=== PATIENT | male | born 1940 | race Caucasian/White ===

== ENCOUNTER 2023-12-19 22:15 | Inpatient (IN) | payer OTHER, SELFPAY ==
[2023-12-19 22:45] VITALS: BP 132/98; PULSE 116; RESP 19; TEMP 36.1; O2SAT 96
[2023-12-19 22:46] VITALS: BMI 23.8
[2023-12-20 00:07] LABS: Glucose, Whole Blood 112 mg/dL (60-115)
[2023-12-20] MEDS: Amiodarone HCL 200 MG TABLET 100 MG PO ×2 (00:35→21:04)
[2023-12-20] MEDS: Atorvastatin Calcium 40 MG TABLET PO ×2 (00:36→21:03)
[2023-12-20] MEDS: Apixaban 5 MG TABLET PO ×3 (00:36→21:03)
[2023-12-20 00:37] VITALS: BP 132/98; PULSE 116
[2023-12-20] MEDS: Metoprolol Succinate ER 50 MG TAB.ER.24H PO ×2 (00:37→21:05)
[2023-12-20] MEDS: Memantine HCl 10 MG TABLET PO ×3 (00:37→21:03)
[2023-12-20 00:38] VITALS: BP 132/98
[2023-12-20] MEDS: Sacubitril/Valsartan 24/26 1 TAB TABLET PO (00:38)
--- NOTE | 2023-12-20 01:20 | PC.NURSE ---
Admission Note Oliver Basurto, 83 years old man was presented to [facility] for increased agitation, aggressive, and threatening behavior towards his . Patient was diagnosed with Vascular Dementia 2 years ago. He has medical history of Afib, Coronary artery disease(CAD), cardiomegaly, heart failure, history of [place], hyperlipidemia, hypertension, obstructive sleep apnea, PTSD, depression, and others.? Oliver arrived on S1 unit at 2240 on 12/19/23, on Section-12B, with an admitting diagnosis of Vascular Dementia (F1.50). Patient is alert and oriented x 3 with little insight into his situation. Patient is calm, pleasant, and compliant with the admission process. Denied SI/HI/AVH/depression/anxiety, contracted for the safety, ambulates with walker, high fall risk due to recent fall at home, VSS, no visible skin issues noticed, meds rec completed based on ED list and verified by calling his who is sole incharge of is medication/provider notified/med approved/MAR active/patient takes his medication whole with water. Patient wears glasses, hearing is impaired, and wears upper and lower dentures. Tested positive for covid? and for UTI on 12/10/23 in ED, UTI treated with Cephalexin, Signed release paper, unit orientation completed,? patient is being observed on 5 minutes safety check as ordered. Patient is full code. Belongings inventoried/secured. Notice of Rights for Temporary Involuntary Hospitalization Form offered/explained/signed/filed.?
[2023-12-20] MEDS: Empagliflozin 10 MG TABLET PO ×2 (08:15→08:19)
[2023-12-20] MEDS: Sennosides 8.6 MG TABLET 17.2 MG PO (08:15)
[2023-12-20 08:17] VITALS: BP 93/62; PULSE 71; RESP 16; TEMP 36.6; O2SAT 96
[2023-12-20] MEDS: buPROPion HCl XL 300 MG TAB.ER.24H PO (08:19)
[2023-12-20] MEDS: Furosemide 20 MG TABLET 10 MG PO (08:19)
--- NOTE | 2023-12-20 08:46 | P.HPPS_ITS ---
[facility] Date of Service: 12/20/23 Chief Complaint: Vascular Dementia Sources of Information: patient interviewed, chart reviewed and crisis/core team assessment reviewed Additional Sources of Information: Joselyn [phone] HPI Subjective Notes: Daigle Warning and Section 12B Narrative: Mr. Hoskins is a 83 year-old male with hx of vascular dementia who was initially brought via EMS to [facility] ED on 12/10/2023 due to increase combative behaviors towards (per ED documentation threw glass with ice and broke other) due to beliefs that is having an affair with garage door service technician. Per , pt had made threats that he wanted to kill her. In the ED, pt presented as calmer but continued to present with ideas of his having an affair. He was not oriented to year. Labs in the ED included CBC which showed mild leukocytosis (WBC 11.3), CMP without electrolyte abnormalities, BUN elevated 26, Cr 1.14, ASL 21, ALT 15. UA showed urine protein, glucose, trace of ketones, yeast. He was started on cephalexin for uti. He was also found to be covid positive but described as asymptomatic, therefore not started on paxlovid. His chest XR did show mild patchy perihilar infiltrates bilat. Utox was negative. On the unit, pt presents as guarded. He continues to report that the only reason he was sent to this hospital is because the garage door service technician old the doctor at the other hospital to keep him away from his . He also reports that he suspect long time friend, Franc, has been murdering people and he learned through a secrete source that he is planning to kill his ramesh. Pt presents somewhat restless and agitated about idea that he has to warn his friend who he suspect will be killed tonkary. When asked if hearing things that others can't hear, he denies it. He denies any physical pain. Past Psychiatric History: Inpt: none in the past OP: Dr. Clovis Blood [phone], ext [phone]. Past trials: wellbutrin Medical Evaluation Reviewed: Yes [facility] Medical History (Updated 12/21/23 @ 08:37 by Stefanie Aviles NP) PTSD (post-traumatic stress disorder) MOE (obstructive sleep apnea) CHF (congestive heart failure) Myocardial infarction Cardiomegaly HLD (hyperlipidemia) CAD (coronary artery disease) A-fib Vascular dementia Surgical History (Updated 12/20/23 @ 09:58 by Christin Carballo PA-C) History of bilateral hip replacements History of cholecystectomy Diagnostics Vital Signs (24Hr): Vital Signs - 24 hr 12/19/23 22:45 12/20/23 00:37 12/20/23 00:38 Temperature 96.9 F Pulse Rate 116 H 116 H Respiratory Rate 19 Blood Pressure 132/98 H 132/98 H 132/98 H Pulse Oximetry 96 Oxygen Delivery Method Room Air 12/20/23 08:17 Temperature 97.9 F Pulse Rate 71 Respiratory Rate 16 Blood Pressure 93/62 Pulse Oximetry 96 Oxygen Delivery Method Room Air BMI result Body Mass Index 23.8 Labs Labs: Laboratory Results - last 48 hr 12/19/23 23:13 POC Glucose 112 Meds/Allergies Meds Home Medications ?Medication ?Instructions ?Recorded ?Confirmed ?Type amiodarone 100 mg tablet 100 mg PO BEDTIME 12/19/23 12/19/23 History apixaban 5 mg tablet 5 mg PO BID 12/19/23 12/19/23 History atorvastatin 40 mg tablet 40 mg PO BEDTIME 12/19/23 12/19/23 History bupropion HCl 300 mg 24 hr tablet, 300 mg PO QAM 12/19/23 12/19/23 History extended release docusate sodium 100 mg capsule 100 mg PO DAILY PRN Constipation 12/19/23 12/19/23 History empagliflozin 10 mg tablet 10 mg PO QAM 12/19/23 12/19/23 History (Jardiance) furosemide 20 mg tablet 10 mg PO DAILY 12/19/23 12/19/23 History memantine 10 mg tablet 10 mg PO BID 12/19/23 12/19/23 History metoprolol succinate 25 mg 50 mg PO BEDTIME 12/19/23 12/19/23 History tablet,extended release 24 hr oxycodone 5 mg tablet 5 mg PO Q4H PRN Pain (Scale Score 12/19/23 12/19/23 History 4-6) pantoprazole 20 mg tablet,delayed 20 mg PO DAILY 12/19/23 12/19/23 History release sacubitril 24 mg-valsartan 26 mg 1 tab PO BID 12/19/23 12/19/23 History tablet sennosides 8.6 mg tablet (senna) 17.2 mg PO DAILY PRN Constipation 12/19/23 12/19/23 History trazodone 50 mg tablet 50 mg PO BEDTIME PRN Insomnia 12/19/23 12/19/23 History Allergies Allergies Allergy/AdvReac Type Severity Reaction Status Date / Time No Known Allergies Allergy Verified 12/19/23 22:30 Mental Status Exam Mental Status Exam Narrative: Appearance: wearing hospital gown, fair hygiene, in NAD Behavior: somewhat guarded Psychomotor: no agitation or retardation noted Speech: mostly clear, regular rhythm/volume, spontaneous TP: linear TC: paranoid delusions Mood: good Affect: paranoid, guarded SI: denies HI: none VH/AH: none Delusions: paranoid delusions, delusions of spouse having an affair. Insight/judgment: impaired x 2. memory/cog: alert, oriented to fact that this is a hospital, but does not know t he city, knows month, not year. Not oriented to situation. Assessment & Plan Assessment & Plan (1) Major neurocognitive disorder due to vascular disease, with behavioral disturbance, moderate: Status: Acute Code(s): F01.B18 - Vascular dementia, moderate, with other behavioral disturbance Plan Mr. Hoskins is a 83 year-old male with hx of vascular dementia who has been presenting with delusions of spouse having an affair since 01/2023. Per , he has been presenting more agitated, also with paranoid delusions of long time friend killing people. He is not oriented to city, nor year. His insight and judgment are impaired. Discussed with invoking HCP. Plan to d/c wellbutrin and start risperidone to target delusions. PLAN 1. Admit to S1, sect 12b, 15 minutes checks 2. d/c wellbutrin, start risperidone 0.5mg po BID. 3. aftercare planning. Patient educated on: diagnosis and medication risk/benefits Guardian/Caregiver educated on: diagnosis and medication risk/benefits Informed Consent: understands Reason for continued inpatient stay Substantial Risk for: harm to others and inability to function Statement Statement: I have reviewed the history and physical and performed a pertinent examination on my patient. No changes have occurred unless specified. If the History and Physical was not performed prior to admission, the Hospitalist's service will be consulted for completing the admission physic al. Time Spent With Patient Time: Total time managing care of this patient today _35___ minutes.
--- NOTE | 2023-12-20 09:47 | HO.PM.IMCN ---
History of Present Illness Data of Consult Service Date: 12/20/23 Requesting physician: Conner Tobias Primary Care Provider: Nonstaff Physician HPI Reason for consult: medical consult 83-year-old male admitted to [facility] with a past medical history significant for vascular dementia diagnosed in 2021, AFib, hypertension, CAD, HLD, cardiomegaly, CHF, MOE (no CPAP), PTSD, depression, AICD, and history of [place] in 1992. He was sent to us from [facility] for agitation and aggressive behavior toward his on a section 12 B. he was diagnosed with COVID and a UTI in 12 10 23, treated with cephalexin. He has no urinary concerns including frequency, urgency, hesitancy or dysuria. He denies any medical concerns today including headache sore throat congestion shortness of breath cough abdominal pain nausea vomiting diarrhea or musculoskeletal complaints. Review of Systems Constitutional: Constitutional: Denies body ache(s), Denies chills, Denies fatigue, Denies fever(s) and Denies headache(s) Eyes: Eyes: Denies change in vision ENT: Denies headache(s), Denies nasal congestion and Denies nasal discharge Cardiovascular: Cardiovascular: Denies rapid heart rate, Denies lightheadedness and Denies dyspnea Respiratory: Respiratory: Denies cough and Denies dyspnea Gastrointestinal: Gastrointestinal: Denies constipation, Denies diarrhea, Denies nausea and Denies vomiting Genitourinary: Genitourinary: Denies dysuria, Denies urinary frequency, Denies urinary hesitancy and Denies urinary urgency Musculoskeletal: Musculoskeletal: Denies back pain Integumentary/Breasts: Skin/Breast: Denies rash Neurologic: Denies headache(s) and Reports memory loss Psychiatric: Psychiatric: Denies anxiety and Reports memory loss Endocrine: Endocrine: Denies fatigue [facility] Medical History (Updated 12/20/23 @ 09:58 by Christin Carballo PA-C) PTSD (post-traumatic stress disorder) MOE (obstructive sleep apnea) CHF (congestive heart failure) Myocardial infarction Cardiomegaly HLD (hyperlipidemia) CAD (coronary artery disease) A-fib Vascular dementia Functional capacity: uses cane/walker Surgical History (Updated 12/20/23 @ 09:58 by Christin Carballo PA-C) History of bilateral hip replacements History of cholecystectomy Social History Household Members: Spouse Household Members Other:: 2 Housing: Condominium Do you presently have visiting nurse or other home services: No Patient Tobacco Use Status: Former Tobacco user Tobacco use type: Cigarette Smoked in Last 30 Days: No Use of substances other than those prescribed or required for medical reasons: No Have you been hit, kicked, punched, or otherwise hurt by someone within the past year? If so, by whom?: No Do you feel safe in your current relationship?: Yes Is there a partner from a previous relationship who is making you feel unsafe now?: No Are you made to feel afraid or neglected: No Advance Directives: No Advance Directives Information Provided: No Do you have a plan to hurt others: No Plan Recently lost weight without trying: Yes How much weight loss: 14-23 pounds Eating poorly because of decreased appetite: No Nutrition screen score: 4 Nutrition Risks: No Nutritional Risk Poor oral hygiene: Yes Narrative: Previous smoker, no alcohol, no illicit drug use. Lives with . Meds Allergies Allergy/AdvReac Type Severity Reaction Status Date / Time No Known Allergies Allergy Verified 12/19/23 22:30 Active Medications: Current Medications Acetaminophen (Acetaminophen 325 Mg Tablet) 650 mg PO Q6H PRN PRN Reason: Headache/Pain Mild Scale (1-3) Al Hydroxide/Mg Hydroxide (Magnesium Hydrox/Alum Hydrox 30 Ml Oral.Susp) 30 ml PO Q6H PRN PRN Reason: Heartburn/Nausea Amiodarone HCl (Amiodarone Hcl 200 Mg Tablet) 100 mg PO BEDTIME [facility] Last Admin: 12/20/23 00:35 Dose: 100 mg Apixaban (Apixaban 5 Mg Tablet) 5 mg PO BID [facility] Last Admin: 12/20/23 08:18 Dose: 5 mg Atorvastatin Calcium (Atorvastatin Calcium 40 Mg Tablet) 40 mg PO BEDTIME [facility] Last Admin: 12/20/23 00:36 Dose: 40 mg Bupropion HCl (Bupropion Hcl Xl 300 Mg Tab.Er.24h) 300 mg PO DAILY [facility] Last Admin: 12/20/23 08:19 Dose: 300 mg Docusate Sodium (Docusate Sodium 100 Mg Capsule) 100 mg PO DAILY PRN PRN Reason: Constipation Empagliflozin (Empagliflozin 10 Mg Tablet) 10 mg PO DAILY [facility] Last Admin: 12/20/23 08:19 Dose: 10 mg Furosemide (Furosemide 20 Mg Tablet) 10 mg PO DAILY [facility]; Protocol Last Admin: 12/20/23 08:19 Dose: 10 mg Hydroxyzine HCl (Hydroxyzine Hcl 25 Mg Tablet) 25 mg PO Q6H PRN PRN Reason: Anxiety Magnesium Hydroxide (Milk Of Magnesia 30 Ml Oral.Susp) 30 ml PO DAILY PRN PRN Reason: Constipation Memantine (Memantine Hcl 10 Mg Tablet) 10 mg PO BID [facility] Last Admin: 12/20/23 08:18 Dose: 10 mg Metoprolol Succinate (Metoprolol Succinate Er 50 Mg Tab.Er.24h) 50 mg PO BEDTIME [facility]; Protocol Last Admin: 12/20/23 00:37 Dose: 50 mg Oxycodone HCl (Oxycodone Hcl Immed Release 5 Mg Tablet) 5 mg PO Q4H PRN PRN Reason: Pain (Scale Score 4-6) Pantoprazole Sodium (Pantoprazole Sodium 20 Mg Tablet.Dr) 20 mg PO DAILY [facility] Sacubitril/Valsartan (Sacubitril/Valsartan 1 Tab Tablet) 1 tab PO BID [facility]; Protocol Last Admin: 12/20/23 00:38 Dose: 1 tab Senna (Sennosides 8.6 Mg Tablet) 17.2 mg PO DAILY PRN PRN Reason: Constipation Last Admin: 12/20/23 08:15 Dose: 17.2 mg Trazodone HCl (Trazodone Hcl 50 Mg Tablet) 50 mg PO BEDTIME MRX1 PRN PRN Reason: Insomnia Home Medications ?Medication ?Instructions ?Recorded ?Confirmed ?Last Taken ?Type amiodarone 100 mg tablet 100 mg PO BEDTIME 12/19/23 12/19/23 Unknown History apixaban 5 mg tablet 5 mg PO BID 12/19/23 12/19/23 Unknown History atorvastatin 40 mg tablet 40 mg PO BEDTIME 12/19/23 12/19/23 Unknown History bupropion HCl 300 mg 24 hr tablet, 300 mg PO QAM 12/19/23 12/19/23 Unknown History extended release docusate sodium 100 mg capsule 100 mg PO DAILY PRN Constipation 12/19/23 12/19/23 Unknown History empagliflozin 10 mg tablet 10 mg PO QAM 12/19/23 12/19/23 Unknown History (Jardiance) furosemide 20 mg tablet 10 mg PO DAILY 12/19/23 12/19/23 Unknown History memantine 10 mg tablet 10 mg PO BID 12/19/23 12/19/23 Unknown History metoprolol succinate 25 mg 50 mg PO BEDTIME 12/19/23 12/19/23 Unknown History tablet,extended release 24 hr oxycodone 5 mg tablet 5 mg PO Q4H PRN Pain (Scale Score 12/19/23 12/19/23 Unknown History 4-6) pantoprazole 20 mg tablet,delayed 20 mg PO DAILY 12/19/23 12/19/23 Unknown History release sacubitril 24 mg-valsartan 26 mg 1 tab PO BID 12/19/23 12/19/23 Unknown History tablet sennosides 8.6 mg tablet (senna) 17.2 mg PO DAILY PRN Constipation 12/19/23 12/19/23 Unknown History trazodone 50 mg tablet 50 mg PO BEDTIME PRN Insomnia 12/19/23 12/19/23 Unknown History Physical Exam Vital Signs and Narrative: Vital Signs: Last Vital Signs Temp 97.9 F 12/20/23 08:17 Pulse 71 12/20/23 08:17 Resp 16 12/20/23 08:17 BP 93/62 12/20/23 08:17 Pulse Ox 96 12/20/23 08:17 O2 Del Method Room Air 12/20/23 08:17 BMI result Body Mass Index 23.8 General: AOx3, no acute distress Resp: CTA bilaterally CVS: S1, S2, RRR GI: +BS, NT, no distention Skin: Warm, dry Neuro: Cranial nerves II-XII grossly intact bilaterally. Motor grossly intact bilaterally Extremities: No edema Psych: Appropriate affect Results Labs Labs: Laboratory Results - last 24 hr 12/19/23 23:13 POC Glucose 112 Assessment and Plan (1) Medical clearance for psychiatric admission: Status: Acute Plan 83-year-old male admitted to [facility] with a past medical history significant for vascular dementia diagnosed in 2021, AFib, hypertension, CAD, HLD, cardiomegaly, CHF, MOE (no CPAP), PTSD, depression, AICD, and history of [place] in 1992. He was sent to us from [facility] for agitation and aggressive behavior toward his on a section 12 B. Patient appears medically clear for psych floor. Recent UTI - treated with Keflex, patient asymptomatic - check UA Vascular dementia - continue memantine CHF - continue Entresto A fib - continue apixiban and amiodarone HTN - continue furosemide and metoprolol CAD/HLD - continue atorvastatin Thank you for allowing me to participate in the pt's care. Signing off for now. Please contact the medical team if any questions or concerns.
[2023-12-20 10:34] VITALS: BP 90/56
[2023-12-20] MEDS: risperiDONE 0.5 MG TABLET PO ×2 (14:04→21:03)
[2023-12-20 20:00] VITALS: BP 97/58; PULSE 71; RESP 16; TEMP 36.2; O2SAT 96
[2023-12-20 21:05] VITALS: BP 97/58; PULSE 71
[2023-12-20] MEDS: traZODone HCL 50 MG TABLET PO (21:08)
[2023-12-21 08:00] VITALS: BP 109/56; PULSE 72; RESP 18; TEMP 36; O2SAT 98
[2023-12-21] MEDS: Empagliflozin 10 MG TABLET PO (08:29)
[2023-12-21] MEDS: Pantoprazole Sodium 20 MG TABLET.DR PO (08:29)
[2023-12-21] MEDS: risperiDONE 0.5 MG TABLET PO ×2 (08:29→21:09)
[2023-12-21] MEDS: Memantine HCl 10 MG TABLET PO ×2 (08:29→21:10)
[2023-12-21] MEDS: Apixaban 5 MG TABLET PO ×2 (08:29→21:09)
--- NOTE | 2023-12-21 11:39 | HO.PSYCHPN ---
Subjective Subjective Date of Service: 12/21/23 Reason For Visit: Vascular Dementia Subjective Notes: Conditional Voluntary Healthcare Proxy: Yes Interim History: Pt sleep most of the night. He presents as calm and asks appropriate questions about why he is a patient here in the hospital. This script writer explained that it was aggression towards and safety in the home. Pt denies any plan or intent to harm her. We discussed that disagrees with idea that she is having an affair. Pt states that even if he thinks she is having affair she would not hurt her. When asked about paranoia related to thinking that someone was trying to kill her friend, he reports he does not know how he got clue about it. He has been visible on the unit, social with peers. SBP has been low- 109/56, will check ortho HOTN Medication Compliance: Yes Side effects from medications: No Attending Groups: Yes Diagnostics Vital Signs (24Hr): Vital Signs - 24 hr 12/20/23 20:00 12/20/23 21:05 12/21/23 08:00 Temperature 97.2 F 96.8 F Pulse Rate 71 71 72 Respiratory Rate 16 18 Blood Pressure 97/58 L 97/58 L 109/56 L Pulse Oximetry 96 98 Oxygen Delivery Method Room Air Room Air BMI result Body Mass Index 23.8 Labs Labs: Laboratory Results - last 48 hr 12/19/23 23:13 POC Glucose 112 Medications Medications Current Medications Acetaminophen (Acetaminophen 325 Mg Tablet) 650 mg PO Q6H PRN PRN Reason: Headache/Pain Mild Scale (1-3) Al Hydroxide/Mg Hydroxide (Magnesium Hydrox/Alum Hydrox 30 Ml Oral.Susp) 30 ml PO Q6H PRN PRN Reason: Heartburn/Nausea Amiodarone HCl (Amiodarone Hcl 200 Mg Tablet) 100 mg PO BEDTIME [facility] Last Admin: 12/20/23 21:04 Dose: 100 mg Apixaban (Apixaban 5 Mg Tablet) 5 mg PO BID [facility] Last Admin: 12/21/23 08:29 Dose: 5 mg Atorvastatin Calcium (Atorvastatin Calcium 40 Mg Tablet) 40 mg PO BEDTIME [facility] Last Admin: 12/20/23 21:03 Dose: 40 mg Docusate Sodium (Docusate Sodium 100 Mg Capsule) 100 mg PO DAILY PRN PRN Reason: Constipation Empagliflozin (Empagliflozin 10 Mg Tablet) 10 mg PO DAILY [facility] Last Admin: 12/21/23 08:29 Dose: 10 mg Furosemide (Furosemide 20 Mg Tablet) 10 mg PO DAILY [facility]; Protocol Last Admin: 12/20/23 08:19 Dose: 10 mg Hydroxyzine HCl (Hydroxyzine Hcl 25 Mg Tablet) 25 mg PO Q6H PRN PRN Reason: Anxiety Magnesium Hydroxide (Milk Of Magnesia 30 Ml Oral.Susp) 30 ml PO DAILY PRN PRN Reason: Constipation Memantine (Memantine Hcl 10 Mg Tablet) 10 mg PO BID [facility] Last Admin: 12/21/23 08:29 Dose: 10 mg Metoprolol Succinate (Metoprolol Succinate Er 50 Mg Tab.Er.24h) 50 mg PO BEDTIME [facility]; Protocol Last Admin: 12/20/23 21:05 Dose: 50 mg Oxycodone HCl (Oxycodone Hcl Immed Release 5 Mg Tablet) 5 mg PO Q4H PRN PRN Reason: Pain (Scale Score 4-6) Pantoprazole Sodium (Pantoprazole Sodium 20 Mg Tablet.Dr) 20 mg PO DAILY [facility] Last Admin: 12/21/23 08:29 Dose: 20 mg Risperidone (Risperidone 0.5 Mg Tablet) 0.5 mg PO BID [facility] Last Admin: 12/21/23 08:29 Dose: 0.5 mg Sacubitril/Valsartan (Sacubitril/Valsartan 1 Tab Tablet) 1 tab PO BID [facility]; Protocol Last Admin: 12/20/23 11:23 Dose: Not Given Senna (Sennosides 8.6 Mg Tablet) 17.2 mg PO DAILY PRN PRN Reason: Constipation Last Admin: 12/20/23 08:15 Dose: 17.2 mg Trazodone HCl (Trazodone Hcl 50 Mg Tablet) 50 mg PO BEDTIME MRX1 PRN PRN Reason: Insomnia Last Admin: 12/20/23 21:08 Dose: 50 mg Allergies Allergies Allergy/AdvReac Type Severity Reaction Status Date / Time No Known Allergies Allergy Verified 12/19/23 22:30 Assessment & Plan Assessment & Plan (1) Major neurocognitive disorder due to vascular disease, with behavioral disturbance, moderate: Status: Acute Code(s): F01.B18 - Vascular dementia, moderate, with other behavioral disturbance Plan Mr. Hoskins is a 83 year-old male with hx of vascular dementia who has been presenting with delusions of spouse having an affair since 01/2023. Per , he has been presenting more agitated, also with paranoid delusions of long time friend killing people. He is not oriented to city, nor year. His insight and judgment are impaired. Discussed with invoking HCP. Plan to d/c wellbutrin and start risperidone to target delusions. PLAN 12/20 continue current medications. HOTN. will check ortho. Reason for continued inpatient stay Substantial Risk for: harm to others and inability to function Time Spent With Patient Time: Total time managing care of this patient today ____ minutes.
[2023-12-21 14:11] VITALS: BP 122/57; PULSE 89
[2023-12-21 14:51] VITALS: BP 122/57; PULSE 89; O2SAT 94
[2023-12-21 14:53] VITALS: BP 119/74; PULSE 77; O2SAT 96
--- NOTE | 2023-12-21 15:14 | PC.NURSE ---
Clean catch urine obtained at 1500. Patient voided 500cc clear yellow urine. Specimen sent to lab.
[2023-12-21 15:24] LABS: Appearance Urine Clear; Color Urine Yellow; Glucose Urine UA >=1000 mg/dL (Negative); Leukocyte Esterase Urine Negative (Negative); Nitrite Urine Negative (Negative); PH 5.5 (5.0-9.0); Specific Gravity - Urine 1.015 (1.005-1.025); UMIC TRIGGER UACC YES; Urine Blood Trace (Negative); Urine Ketones Negative (Negative); Urine Protein Negative (Neg-Trace)
[2023-12-21 15:27] LABS: Bacteria Urine None Seen (None Seen); Hyaline Casts Urine 0-2 /LPF (0-2); RBC Urine 0-2 /HPF (0-2); Squamous Epithelial Cell Urine 0-2 /HPF (0-2); WBC Urine 0-5 /HPF (0-5)
--- NOTE | 2023-12-21 18:35 | PC.NURSE ---
Urine with greater than 1000 glucose spillage. Patient is on Jardiance, a glucose spilling medication.
[2023-12-21 20:00] VITALS: BP 115/55; BP 115/75; PULSE 57; RESP 16; TEMP 36.3; O2SAT 94
[2023-12-21] MEDS: Atorvastatin Calcium 40 MG TABLET PO (21:08)
[2023-12-21] MEDS: hydrOXYzine HCL 25 MG TABLET PO (21:09)
[2023-12-21] MEDS: traZODone HCL 50 MG TABLET PO (21:09)
[2023-12-21] MEDS: Amiodarone HCL 200 MG TABLET 100 MG PO (21:09)
[2023-12-22 08:15] VITALS: BP 132/60; PULSE 65; RESP 16; TEMP 36.5; O2SAT 96
[2023-12-22] MEDS: risperiDONE 0.5 MG TABLET PO ×2 (08:32→20:29)
[2023-12-22] MEDS: Pantoprazole Sodium 20 MG TABLET.DR PO (08:32)
[2023-12-22] MEDS: Apixaban 5 MG TABLET PO ×2 (08:32→20:29)
[2023-12-22] MEDS: Memantine HCl 10 MG TABLET PO ×2 (08:32→20:29)
[2023-12-22] MEDS: Empagliflozin 10 MG TABLET PO (08:33)
[2023-12-22 11:29] VITALS: BMI 26.3
--- NOTE | 2023-12-22 17:56 | HO.PSYCHPN ---
Subjective Subjective Date of Service: 12/22/23 Reason For Visit: Vascular Dementia Subjective Notes: Conditional Voluntary Healthcare Proxy: Yes Interim History: Pt sleep most of the night. Pt has been visible on the unit, social with select peers. He continues to repor he would never hurt his . He denies SI/HI. Still believes having affair, less insistence in friend trying to kill someone. He has been eating, some mild poor boundaries with females. Review of Systems Review of Systems No chest pain, no SOB No changes in vision No loose stools or constipation. Constitutional: Denies body ache(s), Denies chills, Denies fatigue, Denies fever(s) and Denies headache(s) Eyes: Denies change in vision Denies headache(s), Denies nasal congestion and Denies nasal discharge Cardiovascular: Denies rapid heart rate, Denies lightheadedness and Denies dyspnea Respiratory: Denies cough and Denies dyspnea Gastrointestinal: Denies constipation, Denies diarrhea, Denies nausea and Denies vomiting Genitourinary: Denies dysuria, Denies urinary frequency, Denies urinary hesitancy and Denies urinary urgency Musculoskeletal: Denies back pain Skin/Breast: Denies rash Denies headache(s) and Reports memory loss Psychiatric: Denies anxiety and Reports memory loss Endocrine: Denies fatigue Mental Status Exam Mental Status Exam Narrative: Appearance: wearing hospital gown, fair hygiene, in NAD Behavior: somewhat guarded Psychomotor: no agitation or retardation noted Speech: mostly clear, regular rhythm/volume, spontaneous TP: linear TC: paranoid delusions Mood: good Affect: paranoid, guarded SI: denies HI: none VH/AH: none Delusions: paranoid delusions, delusions of spouse having an affair. Insight/judgment: impaired x 2. memory/cog: alert, oriented to fact that this is a hospital, but does not know the city, knows month, not year. Not oriented to situation. Diagnostics Vital Signs (24Hr): Vital Signs - 24 hr 12/21/23 20:00 12/21/23 20:00 12/22/23 08:15 Temperature 97.4 F 97.7 F Pulse Rate 57 57 65 Respiratory Rate 16 16 Blood Pressure 115/55 L 115/75 132/60 Pulse Oximetry 94 96 Oxygen Delivery Method Room Air Room Air BMI result Body Mass Index 26.3 Labs Labs: Laboratory Results - last 48 hr 12/21/23 15:00 Urine Color Yellow Urine Appearance Clear Urine pH 5.5 Ur Specific [place] 1.015 Urine Protein Negative Urine Glucose (UA) >=1000 H Urine Ketones Negative Urine Blood Trace H Urine Nitrite Negative Ur Leukocyte Esterase Negative Urine RBC 0-2 Urine WBC 0-5 Ur Squamous Epith Cells 0-2 Urine Bacteria None Seen Hyaline Casts 0-2 Medications Medications Current Medications Acetaminophen (Acetaminophen 325 Mg Tablet) 650 mg PO Q6H PRN PRN Reason: Headache/Pain Mild Scale (1-3) Al Hydroxide/Mg Hydroxide (Magnesium Hydrox/Alum Hydrox 30 Ml Oral.Susp) 30 ml PO Q6H PRN PRN Reason: Heartburn/Nausea Amiodarone HCl (Amiodarone Hcl 200 Mg Tablet) 100 mg PO BEDTIME [facility] Last Admin: 12/21/23 21:09 Dose: 100 mg Apixaban (Apixaban 5 Mg Tablet) 5 mg PO BID [facility] Last Admin: 12/22/23 08:32 Dose: 5 mg Atorvastatin Calcium (Atorvastatin Calcium 40 Mg Tablet) 40 mg PO BEDTIME [facility] Last Admin: 12/21/23 21:08 Dose: 40 mg Docusate Sodium (Docusate Sodium 100 Mg Capsule) 100 mg PO DAILY PRN PRN Reason: Constipation Empagliflozin (Empagliflozin 10 Mg Tablet) 10 mg PO DAILY [facility] Last Admin: 12/22/23 08:33 Dose: 10 mg Furosemide (Furosemide 20 Mg Tablet) 10 mg PO DAILY [facility]; Protocol Last Admin: 12/20/23 08:19 Dose: 10 mg Hydroxyzine HCl (Hydroxyzine Hcl 25 Mg Tablet) 25 mg PO Q6H PRN PRN Reason: Anxiety Last Admin: 12/21/23 21:09 Dose: 25 mg Magnesium Hydroxide (Milk Of Magnesia 30 Ml Oral.Susp) 30 ml PO DAILY PRN PRN Reason: Constipation Memantine (Memantine Hcl 10 Mg Tablet) 10 mg PO BID [facility] Last Admin: 12/22/23 08:32 Dose: 10 mg Metoprolol Succinate (Metoprolol Succinate Er 50 Mg Tab.Er.24h) 50 mg PO BEDTIME [facility]; Protocol Last Admin: 12/21/23 20:00 Dose: Not Given Oxycodone HCl (Oxycodone Hcl Immed Release 5 Mg Tablet) 5 mg PO Q4H PRN PRN Reason: Pain (Scale Score 4-6) Pantoprazole Sodium (Pantoprazole Sodium 20 Mg Tablet.) 20 mg PO DAILY [facility] Last Admin: 12/22/23 08:32 Dose: 20 mg Risperidone (Risperidone 0.5 Mg Tablet) 0.5 mg PO BID [facility] Last Admin: 12/22/23 08:32 Dose: 0.5 mg Sacubitril/Valsartan (Sacubitril/Valsartan 1 Tab Tablet) 1 tab PO BID [facility]; Protocol Last Admin: 12/20/23 11:23 Dose: Not Given Senna (Sennosides 8.6 Mg Tablet) 17.2 mg PO DAILY PRN PRN Reason: Constipation Last Admin: 12/20/23 08:15 Dose: 17.2 mg Trazodone HCl (Trazodone Hcl 50 Mg Tablet) 50 mg PO BEDTIME MRX1 PRN PRN Reason: Insomnia Last Admin: 12/21/23 21:09 Dose: 50 mg Allergies Allergies Allergy/AdvReac Type Severity Reaction Status Date / Time No Known Allergies Allergy Verified 12/19/23 22:30 Assessment & Plan Assessment & Plan (1) Major neurocognitive disorder due to vascular disease, with behavioral disturbance, moderate: Status: Acute Code(s): F01.B18 - Vascular dementia, moderate, with other behavioral disturbance Plan Mr. Hoskins is a 83 year-old male with hx of vascular dementia who has been presenting with delusions of spouse having an affair since 01/2023. Per , he has been presenting more agitated, also with paranoid delusions of long time friend killing people. He is not oriented to city, nor year. His insight and judgment are impaired. Discussed with invoking HCP. Plan to d/c wellbutrin and start risperidone to target delusions. PLAN 12/20 continue current medications. HOTN. will check ortho. 12/21 continue tx. BP improving, was very low day before, lasix held. Reason for continued inpatient stay Substantial Risk for: inability to function Time Spent With Patient Time: Total time managing care of this patient today ____ minutes.
[2023-12-22 20:00] VITALS: BP 142/63; PULSE 55; RESP 18; TEMP 36.7; O2SAT 95
[2023-12-22] MEDS: Atorvastatin Calcium 40 MG TABLET PO (20:28)
[2023-12-22] MEDS: Amiodarone HCL 200 MG TABLET 100 MG PO (20:28)
[2023-12-22] MEDS: traZODone HCL 50 MG TABLET PO (20:29)
[2023-12-23 07:58] VITALS: BP 141/66; PULSE 93; RESP 18; TEMP 36.4; O2SAT 97
[2023-12-23] MEDS: Memantine HCl 10 MG TABLET PO ×2 (08:37→21:34)
[2023-12-23] MEDS: Apixaban 5 MG TABLET PO ×2 (08:37→21:35)
[2023-12-23] MEDS: Pantoprazole Sodium 20 MG TABLET.DR PO (08:37)
[2023-12-23] MEDS: risperiDONE 0.5 MG TABLET PO (08:37)
[2023-12-23] MEDS: Empagliflozin 10 MG TABLET PO (08:37)
--- NOTE | 2023-12-23 18:31 | HO.PSYCHPN ---
Subjective Subjective Date of Service: 12/23/23 Reason For Visit: Vascular Dementia Subjective Notes: Conditional Voluntary Interim History: Pt sleep most of the night. Pt has been visible on the unit, social with select peers. He continues to denie any plan or intent to hurt his . No SI/HI. Less paranoid ideas. taking medications as prescribed, tolerating medication well. no side effects. VS low, lasic continued to be held. Review of Systems Review of Systems No chest pain, no SOB No changes in vision No loose stools or constipation. Constitutional: Denies body ache(s), Denies chills, Denies fatigue, Denies fever(s) and Denies headache(s) Eyes: Denies change in vision Denies headache(s), Denies nasal congestion and Denies nasal discharge Cardiovascular: Denies rapid heart rate, Denies lightheadedness and Denies dyspnea Respiratory: Denies cough and Denies dyspnea Gastrointestinal: Denies constipation, Denies diarrhea, Denies nausea and Denies vomiting Genitourinary: Denies dysuria, Denies urinary frequency, Denies urinary hesitancy and Denies urinary urgency Musculoskeletal: Denies back pain Skin/Breast: Denies rash Denies headache(s) and Reports memory loss Psychiatric: Denies anxiety and Reports memory loss Endocrine: Denies fatigue Mental Status Exam Mental Status Exam Narrative: Appearance: wearing hospital gown, fair hygiene, in NAD Behavior: somewhat guarded Psychomotor: no agitation or retardation noted Speech: mostly clear, regular rhythm/volume, spontaneous TP: linear TC: paranoid delusions Mood: good Affect: paranoid, guarded SI: denies HI: none VH/AH: none Delusions: paranoid delusions, delusions of spouse having an affair. Insight/judgment: impaired x 2. memory/cog: alert, oriented to fact that this is a hospital, but does not know the city, knows month, not year. Not oriented to situation. Diagnostics Vital Signs (24Hr): Vital Signs - 24 hr 12/22/23 20:00 12/23/23 07:58 Temperature 98.1 F 97.5 F Pulse Rate 55 93 Respiratory Rate 18 18 Blood Pressure 142/63 H 141/66 H Pulse Oximetry 95 97 Oxygen Delivery Method Room Air Room Air BMI result Body Mass Index 26.3 Medications Medications Current Medications Acetaminophen (Acetaminophen 325 Mg Tablet) 650 mg PO Q6H PRN PRN Reason: Headache/Pain Mild Scale (1-3) Al Hydroxide/Mg Hydroxide (Magnesium Hydrox/Alum Hydrox 30 Ml Oral.Susp) 30 ml PO Q6H PRN PRN Reason: Heartburn/Nausea Amiodarone HCl (Amiodarone Hcl 200 Mg Tablet) 100 mg PO BEDTIME [facility] Last Admin: 12/22/23 20:28 Dose: 100 mg Apixaban (Apixaban 5 Mg Tablet) 5 mg PO BID [facility] Last Admin: 12/23/23 08:37 Dose: 5 mg Atorvastatin Calcium (Atorvastatin Calcium 40 Mg Tablet) 40 mg PO BEDTIME [facility] Last Admin: 12/22/23 20:28 Dose: 40 mg Docusate Sodium (Docusate Sodium 100 Mg Capsule) 100 mg PO DAILY PRN PRN Reason: Constipation Empagliflozin (Empagliflozin 10 Mg Tablet) 10 mg PO DAILY [facility] Last Admin: 12/23/23 08:37 Dose: 10 mg Furosemide (Furosemide 20 Mg Tablet) 10 mg PO DAILY [facility]; Protocol Last Admin: 12/20/23 08:19 Dose: 10 mg Hydroxyzine HCl (Hydroxyzine Hcl 25 Mg Tablet) 25 mg PO Q6H PRN PRN Reason: Anxiety Last Admin: 12/21/23 21:09 Dose: 25 mg Magnesium Hydroxide (Milk Of Magnesia 30 Ml Oral.Susp) 30 ml PO DAILY PRN PRN Reason: Constipation Memantine (Memantine Hcl 10 Mg Tablet) 10 mg PO BID [facility] Last Admin: 12/23/23 08:37 Dose: 10 mg Metoprolol Succinate (Metoprolol Succinate Er 50 Mg Tab.Er.24h) 50 mg PO BEDTIME [facility]; Protocol Last Admin: 12/22/23 20:30 Dose: Not Given Pantoprazole Sodium (Pantoprazole Sodium 20 Mg Tablet.Dr) 20 mg PO DAILY [facility] Last Admin: 12/23/23 08:37 Dose: 20 mg Risperidone (Risperidone 0.5 Mg Tablet) 0.5 mg PO BID [facility] Last Admin: 12/23/23 08:37 Dose: 0.5 mg Sacubitril/Valsartan (Sacubitril/Valsartan 1 Tab Tablet) 1 tab PO BID [facility]; Protocol Last Admin: 12/20/23 11:23 Dose: Not Given Senna (Sennosides 8.6 Mg Tablet) 17.2 mg PO DAILY PRN PRN Reason: Constipation Last Admin: 12/20/23 08:15 Dose: 17.2 mg Trazodone HCl (Trazodone Hcl 50 Mg Tablet) 50 mg PO BEDTIME MRX1 PRN PRN Reason: Insomnia Last Admin: 12/22/23 20:29 Dose: 50 mg Allergies Allergies Allergy/AdvReac Type Severity Reaction Status Date / Time No Known Allergies Allergy Verified 12/19/23 22:30 Assessment & Plan Assessment & Plan (1) Major neurocognitive disorder due to vascular disease, with behavioral disturbance, moderate: Status: Acute Code(s): F01.B18 - Vascular dementia, moderate, with other behavioral disturbance Plan Mr. Hoskins is a 83 year-old male with hx of vascular dementia who has been presenting with delusions of spouse having an affair since 01/2023. Per , he has been presenting more agitated, also with paranoid delusions of long time friend killing people. He is not oriented to city, nor year. His insight and judgment are impaired. Discussed with invoking HCP. Plan to d/c wellbutrin and start risperidone to target delusions. PLAN 12/20 continue current medications. HOTN. will check ortho. 12/21 continue tx. BP improving, was very low day before, lasix held. 12/22 continue tx. BP on low side continue to hold partial medication for HTN Reason for continued inpatient stay Substantial Risk for: inability to function Time Spent With Patient Time: Total time managing care of this patient today ____ minutes.
[2023-12-23 20:00] VITALS: BP 150/72; PULSE 82; RESP 17; TEMP 36.1; O2SAT 95
[2023-12-23] MEDS: Atorvastatin Calcium 40 MG TABLET PO (21:33)
[2023-12-23] MEDS: risperiDONE 1 MG TABLET PO (21:33)
[2023-12-23 21:34] VITALS: BP 150/72; PULSE 82
[2023-12-23] MEDS: Metoprolol Succinate ER 50 MG TAB.ER.24H PO (21:34)
[2023-12-23] MEDS: Amiodarone HCL 200 MG TABLET 100 MG PO (21:35)
[2023-12-24 08:00] VITALS: BP 103/68; PULSE 70; RESP 17; TEMP 36; O2SAT 96
[2023-12-24] MEDS: Pantoprazole Sodium 20 MG TABLET.DR PO (08:41)
[2023-12-24] MEDS: Apixaban 5 MG TABLET PO ×2 (08:41→21:03)
[2023-12-24] MEDS: risperiDONE 1 MG TABLET PO ×2 (08:41→21:04)
[2023-12-24] MEDS: Memantine HCl 10 MG TABLET PO ×2 (08:41→21:03)
[2023-12-24] MEDS: Empagliflozin 10 MG TABLET PO (08:41)
[2023-12-24 20:00] VITALS: BP 117/58; PULSE 75; RESP 16; TEMP 36.6; O2SAT 96
--- NOTE | 2023-12-24 20:09 | P.PNPSI_ITS ---
Subjective Subjective Date of Service: 12/24/23 Reason For Visit: Vascular Dementia Subjective Notes: Conditional Voluntary Interim History: Pt sleep most of the night. Pt has been visible on the unit, social with select peers. He continues to denie any plan or intent to hurt his . No SI/HI. Less paranoid ideas. taking medications as prescribed, tolerating medication well. no side effects. BP low. Medication Compliance: Yes Review of Systems Review of Systems No chest pain, no SOB No changes in vision No loose stools or constipation. Constitutional: Denies body ache(s), Denies chills, Denies fatigue, Denies fever(s) and Denies headache(s) Eyes: Denies change in vision Denies headache(s), Denies nasal congestion and Denies nasal discharge Cardiovascular: Denies rapid heart rate, Denies lightheadedness and Denies dyspnea Respiratory: Denies cough and Denies dyspnea Gastrointestinal: Denies constipation, Denies diarrhea, Denies nausea and Denies vomiting Genitourinary: Denies dysuria, Denies urinary frequency, Denies urinary hesitancy and Denies urinary urgency Musculoskeletal: Denies back pain Skin/Breast: Denies rash Denies headache(s) and Reports memory loss Psychiatric: Denies anxiety and Reports memory loss Endocrine: Denies fatigue Mental Status Exam Mental Status Exam Narrative: Appearance: wearing hospital gown, fair hygiene, in NAD Behavior: somewhat guarded Psychomotor: no agitation or retardation noted Speech: mostly clear, regular rhythm/volume, spontaneous TP: linear TC: paranoid delusions Mood: good Affect: paranoid, guarded SI: denies HI: none VH/AH: none Delusions: paranoid delusions, delusions of spouse having an affair. Insight/judgment: impaired x 2. memory/cog: alert, oriented to fact that this is a hospital, but does not know the city, knows month, not year. Not oriented to situation. Diagnostics Vital Signs (24Hr): Vital Signs - 24 hr 12/23/23 21:34 12/24/23 08:00 Temperature 96.8 F Pulse Rate 82 70 Respiratory Rate 17 Blood Pressure 150/72 H 103/68 Pulse Oximetry 96 Oxygen Delivery Method Room Air BMI result Body Mass Index 26.3 Medications Medications Current Medications Acetaminophen (Acetaminophen 325 Mg Tablet) 650 mg PO Q6H PRN PRN Reason: Headache/Pain Mild Scale (1-3) Al Hydroxide/Mg Hydroxide (Magnesium Hydrox/Alum Hydrox 30 Ml Oral.Susp) 30 ml PO Q6H PRN PRN Reason: Heartburn/Nausea Amiodarone HCl (Amiodarone Hcl 200 Mg Tablet) 100 mg PO BEDTIME [facility] Last Admin: 12/23/23 21:35 Dose: 100 mg Apixaban (Apixaban 5 Mg Tablet) 5 mg PO BID [facility] Last Admin: 12/24/23 08:41 Dose: 5 mg Atorvastatin Calcium (Atorvastatin Calcium 40 Mg Tablet) 40 mg PO BEDTIME [facility] Last Admin: 12/23/23 21:33 Dose: 40 mg Docusate Sodium (Docusate Sodium 100 Mg Capsule) 100 mg PO DAILY PRN PRN Reason: Constipation Empagliflozin (Empagliflozin 10 Mg Tablet) 10 mg PO DAILY [facility] Last Admin: 12/24/23 08:41 Dose: 10 mg Furosemide (Furosemide 20 Mg Tablet) 10 mg PO DAILY [facility]; Protocol Last Admin: 12/20/23 08:19 Dose: 10 mg Hydroxyzine HCl (Hydroxyzine Hcl 25 Mg Tablet) 25 mg PO Q6H PRN PRN Reason: Anxiety Last Admin: 12/21/23 21:09 Dose: 25 mg Magnesium Hydroxide (Milk Of Magnesia 30 Ml Oral.Susp) 30 ml PO DAILY PRN PRN Reason: Constipation Memantine (Memantine Hcl 10 Mg Tablet) 10 mg PO BID [facility] Last Admin: 12/24/23 08:41 Dose: 10 mg Metoprolol Succinate (Metoprolol Succinate Er 50 Mg Tab.Er.24h) 50 mg PO BEDTIME [facility]; Protocol Last Admin: 12/23/23 21:34 Dose: 50 mg Pantoprazole Sodium (Pantoprazole Sodium 20 Mg Tablet.Dr) 20 mg PO DAILY [facility] Last Admin: 12/24/23 08:41 Dose: 20 mg Risperidone (Risperidone 1 Mg Tablet) 1 mg PO BID [facility] Last Admin: 12/24/23 08:41 Dose: 1 mg Sacubitril/Valsartan (Sacubitril/Valsartan 1 Tab Tablet) 1 tab PO BID [facility]; Protocol Last Admin: 12/20/23 11:23 Dose: Not Given Senna (Sennosides 8.6 Mg Tablet) 17.2 mg PO DAILY PRN PRN Reason: Constipation Last Admin: 12/20/23 08:15 Dose: 17.2 mg Trazodone HCl (Trazodone Hcl 50 Mg Tablet) 50 mg PO BEDTIME MRX1 PRN PRN Reason: Insomnia Last Admin: 12/22/23 20:29 Dose: 50 mg Allergies Allergies Allergy/AdvReac Type Severity Reaction Status Date / Time No Known Allergies Allergy Verified 12/19/23 22:30 Assessment & Plan Assessment & Plan (1) Major neurocognitive disorder due to vascular disease, with behavioral disturbance, moderate: Status: Acute Code(s): F01.B18 - Vascular dementia, moderate, with other behavioral disturbance Plan Mr. Hoskins is a 83 year-old male with hx of vascular dementia who has been presenting with delusions of spouse having an affair since 01/2023. Per , he has been presenting more agitated, also with paranoid delusions of long time friend killing people. He is not oriented to city, nor year. His insight and judgment are impaired. Discussed with invoking HCP. Plan to d/c wellbutrin and start risperidone to target delusions. PLAN 12/20 continue current medications. HOTN. will check ortho. 12/21 continue tx. BP improving, was very low day before, lasix held. 12/22 continue tx 12/23 will increase risperidone 1mg po BID, monitor BP. Reason for continued inpatient stay Substantial Risk for: inability to function Time Spent With Patient Time: Total time managing care of this patient today ____ minutes.
[2023-12-24 21:03] VITALS: BP 117/58; PULSE 75
[2023-12-24] MEDS: traZODone HCL 50 MG TABLET PO (21:03)
[2023-12-24] MEDS: Amiodarone HCL 200 MG TABLET 100 MG PO (21:03)
[2023-12-24] MEDS: Metoprolol Succinate ER 50 MG TAB.ER.24H PO (21:03)
[2023-12-24] MEDS: Atorvastatin Calcium 40 MG TABLET PO (21:03)
[2023-12-25] MEDS: Milk of Magnesia 30 ML ORAL.SUSP PO (05:08)
[2023-12-25 08:00] VITALS: BP 110/52; PULSE 73; RESP 18; TEMP 36.1; O2SAT 94
[2023-12-25] MEDS: Empagliflozin 10 MG TABLET PO (08:50)
[2023-12-25] MEDS: Memantine HCl 10 MG TABLET PO ×2 (08:50→20:40)
[2023-12-25] MEDS: Pantoprazole Sodium 20 MG TABLET.DR PO (08:50)
[2023-12-25] MEDS: Apixaban 5 MG TABLET PO ×2 (08:50→20:40)
[2023-12-25] MEDS: risperiDONE 1 MG TABLET PO ×2 (08:50→20:42)
--- NOTE | 2023-12-25 16:00 | P.PNPSI_ITS ---
Subjective Subjective Date of Service: 12/25/23 Reason For Visit: Vascular Dementia Subjective Notes: Conditional Voluntary Interim History: Pt sleep most of the night. Pt has been visible on the unit, social with select peers. He had visit with , and was very happy to see her. He does not know how long he has been here. reports pt was much calmer, and tender than he has been in several months. Not accusing others nor overly paranoid. BP continues to be low. Review of Systems Review of Systems No chest pain, no SOB No changes in vision No loose stools or constipation. Constitutional: Denies body ache(s), Denies chills, Denies fatigue, Denies fever(s) and Denies headache(s) Eyes: Denies change in vision Denies headache(s), Denies nasal congestion and Denies nasal discharge Cardiovascular: Denies rapid heart rate, Denies lightheadedness and Denies dyspnea Respiratory: Denies cough and Denies dyspnea Gastrointestinal: Denies constipation, Denies diarrhea, Denies nausea and Denies vomiting Genitourinary: Denies dysuria, Denies urinary frequency, Denies urinary hesitancy and Denies urinary urgency Musculoskeletal: Denies back pain Skin/Breast: Denies rash Denies headache(s) and Reports memory loss Psychiatric: Denies anxiety and Reports memory loss Endocrine: Denies fatigue Mental Status Exam Mental Status Exam Narrative: Appearance: wearing hospital gown, fair hygiene, in NAD Behavior: somewhat guarded Psychomotor: no agitation or retardation noted Speech: mostly clear, regular rhythm/volume, spontaneous TP: linear TC: paranoid delusions Mood: good Affect: paranoid, guarded SI: denies HI: none VH/AH: none Delusions: paranoid delusions, delusions of spouse having an affair. Insight/judgment: impaired x 2. memory/cog: alert, oriented to fact that this is a hospital, but does not know the city, knows month, not year. Not oriented to situation. Diagnostics Vital Signs (24Hr): Vital Signs - 24 hr 12/24/23 20:00 12/24/23 21:03 12/25/23 08:00 Temperature 97.9 F 96.9 F Pulse Rate 75 75 73 Respiratory Rate 16 18 Blood Pressure 117/58 L 117/58 L 110/52 L Pulse Oximetry 96 94 Oxygen Delivery Method Room Air Room Air BMI result Body Mass Index 26.3 Medications Medications Current Medications Acetaminophen (Acetaminophen 325 Mg Tablet) 650 mg PO Q6H PRN PRN Reason: Headache/Pain Mild Scale (1-3) Al Hydroxide/Mg Hydroxide (Magnesium Hydrox/Alum Hydrox 30 Ml Oral.Susp) 30 ml PO Q6H PRN PRN Reason: Heartburn/Nausea Amiodarone HCl (Amiodarone Hcl 200 Mg Tablet) 100 mg PO BEDTIME [facility] Last Admin: 12/24/23 21:03 Dose: 100 mg Apixaban (Apixaban 5 Mg Tablet) 5 mg PO BID [facility] Last Admin: 12/25/23 08:50 Dose: 5 mg Atorvastatin Calcium (Atorvastatin Calcium 40 Mg Tablet) 40 mg PO BEDTIME [facility] Last Admin: 12/24/23 21:03 Dose: 40 mg Docusate Sodium (Docusate Sodium 100 Mg Capsule) 100 mg PO DAILY PRN PRN Reason: Constipation Empagliflozin (Empagliflozin 10 Mg Tablet) 10 mg PO DAILY [facility] Last Admin: 12/25/23 08:50 Dose: 10 mg Furosemide (Furosemide 20 Mg Tablet) 10 mg PO DAILY [facility]; Protocol Last Admin: 12/20/23 08:19 Dose: 10 mg Hydroxyzine HCl (Hydroxyzine Hcl 25 Mg Tablet) 25 mg PO Q6H PRN PRN Reason: Anxiety Last Admin: 12/21/23 21:09 Dose: 25 mg Magnesium Hydroxide (Milk Of Magnesia 30 Ml Oral.Susp) 30 ml PO DAILY PRN PRN Reason: Constipation Last Admin: 12/25/23 05:08 Dose: 30 ml Memantine (Memantine Hcl 10 Mg Tablet) 10 mg PO BID [facility] Last Admin: 12/25/23 08:50 Dose: 10 mg Metoprolol Succinate (Metoprolol Succinate Er 50 Mg Tab.Er.24h) 50 mg PO BEDTIME [facility]; Protocol Last Admin: 12/24/23 21:03 Dose: 50 mg Pantoprazole Sodium (Pantoprazole Sodium 20 Mg Tablet.Dr) 20 mg PO DAILY [facility] Last Admin: 12/25/23 08:50 Dose: 20 mg Risperidone (Risperidone 1 Mg Tablet) 1 mg PO BID [facility] Last Admin: 12/25/23 08:50 Dose: 1 mg Sacubitril/Valsartan (Sacubitril/Valsartan 1 Tab Tablet) 1 tab PO BID [facility]; Protocol Last Admin: 12/20/23 11:23 Dose: Not Given Senna (Sennosides 8.6 Mg Tablet) 17.2 mg PO DAILY PRN PRN Reason: Constipation Last Admin: 12/20/23 08:15 Dose: 17.2 mg Trazodone HCl (Trazodone Hcl 50 Mg Tablet) 50 mg PO BEDTIME MRX1 PRN PRN Reason: Insomnia Last Admin: 12/24/23 21:03 Dose: 50 mg Allergies Allergies Allergy/AdvReac Type Severity Reaction Status Date / Time No Known Allergies Allergy Verified 12/19/23 22:30 Assessment & Plan Assessment & Plan (1) Major neurocognitive disorder due to vascular disease, with behavioral disturbance, moderate: Status: Acute Code(s): F01.B18 - Vascular dementia, moderate, with other behavioral disturbance Plan Mr. Hoskins is a 83 year-old male with hx of vascular dementia who has been presenting with delusions of spouse having an affair since 01/2023. Per , he has been presenting more agitated, also with paranoid delusions of long time friend killing people. He is not oriented to city, nor year. His insight and judgment are impaired. Discussed with invoking HCP. Plan to d/c wellbutrin and start risperidone to target delusions. PLAN 12/20 continue current medications. HOTN. will check ortho. 12/21 continue tx. BP improving, was very low day before, lasix held. 12/22 risperidone 1mg po BID 12/23 continue tx. 12/24 continue tx. BP low but stable. no orthostasis. pt denies feeling dizziness. Reason for continued inpatient stay Substantial Risk for: inability to function Time Spent With Patient Time: Total time managing care of this patient today ____ minutes.
[2023-12-25 20:00] VITALS: BP 129/66; PULSE 71; RESP 18; TEMP 36.1; O2SAT 95
[2023-12-25] MEDS: Atorvastatin Calcium 40 MG TABLET PO (20:40)
[2023-12-25] MEDS: traZODone HCL 50 MG TABLET PO (20:41)
[2023-12-25] MEDS: Amiodarone HCL 200 MG TABLET 100 MG PO (20:42)
[2023-12-25] MEDS: Metoprolol Succinate ER 50 MG TAB.ER.24H PO (20:42)
[2023-12-26 07:58] VITALS: BP 102/61; PULSE 72; RESP 18; O2SAT 96
[2023-12-26] MEDS: risperiDONE 1 MG TABLET PO ×2 (08:14→20:21)
[2023-12-26] MEDS: Memantine HCl 10 MG TABLET PO ×2 (08:14→20:21)
[2023-12-26] MEDS: Pantoprazole Sodium 20 MG TABLET.DR PO (08:14)
[2023-12-26] MEDS: Apixaban 5 MG TABLET PO ×2 (08:14→20:21)
[2023-12-26] MEDS: Empagliflozin 10 MG TABLET PO (08:14)
[2023-12-26] MEDS: Sennosides 8.6 MG TABLET 17.2 MG PO (13:20)
[2023-12-26] MEDS: Docusate Sodium 100 MG CAPSULE PO (13:20)
[2023-12-26 20:00] VITALS: BP 112/59; PULSE 73; RESP 18; TEMP 36; O2SAT 96
[2023-12-26] MEDS: Metoprolol Succinate ER 50 MG TAB.ER.24H PO (20:21)
[2023-12-26] MEDS: traZODone HCL 50 MG TABLET PO (20:21)
[2023-12-26] MEDS: Atorvastatin Calcium 40 MG TABLET PO (20:21)
[2023-12-26] MEDS: Amiodarone HCL 200 MG TABLET 100 MG PO (20:21)
--- NOTE | 2023-12-26 20:24 | P.PNPSI_ITS ---
Subjective Subjective Date of Service: 12/26/23 Reason For Visit: Vascular Dementia Interim History: Pt sleep most of the night. Pt has been visible on the unit, social with select peers. He had visit with , and was very happy to see her. He does not know how long he has been here. reports pt was much calmer, and tender than he has been in several months. Not accusing others nor overly paranoid. BP continues to be low. Review of Systems Review of Systems No chest pain, no SOB No changes in vision No loose stools or constipation. Constitutional: Denies body ache(s), Denies chills, Denies fatigue, Denies fever(s) and Denies headache(s) Eyes: Denies change in vision Denies headache(s), Denies nasal congestion and Denies nasal discharge Cardiovascular: Denies rapid heart rate, Denies lightheadedness and Denies dyspnea Respiratory: Denies cough and Denies dyspnea Gastrointestinal: Denies constipation, Denies diarrhea, Denies nausea and Denies vomiting Genitourinary: Denies dysuria, Denies urinary frequency, Denies urinary hesitancy and Denies urinary urgency Musculoskeletal: Denies back pain Skin/Breast: Denies rash Denies headache(s) and Reports memory loss Psychiatric: Denies anxiety and Reports memory loss Endocrine: Denies fatigue Mental Status Exam Mental Status Exam Narrative: Appearance: casually groomed, improved hygiene, in NAD Behavior:cooperative, friendly. Psychomotor: no agitation or retardation noted Speech: mostly clear, regular rhythm/volume, spontaneous TP: linear TC: paranoid delusions Mood: good Affect: congruent, bright, non labile. SI: denies HI: none VH/AH: none Delusions: less paranoid ideas. Insight/judgment: impaired x 2. memory/cog: alert, oriented to fact that this is a hospital, but does not know the city, knows month, not year. Not oriented to situation. Diagnostics Vital Signs (24Hr): Vital Signs - 24 hr 12/26/23 07:58 12/26/23 20:00 Temperature 96.8 F Pulse Rate 72 73 Respiratory Rate 18 18 Blood Pressure 102/61 112/59 L Pulse Oximetry 96 96 Oxygen Delivery Method Room Air Room Air BMI result Body Mass Index 26.3 Medications Medications Current Medications Acetaminophen (Acetaminophen 325 Mg Tablet) 650 mg PO Q6H PRN PRN Reason: Headache/Pain Mild Scale (1-3) Al Hydroxide/Mg Hydroxide (Magnesium Hydrox/Alum Hydrox 30 Ml Oral.Susp) 30 ml PO Q6H PRN PRN Reason: Heartburn/Nausea Amiodarone HCl (Amiodarone Hcl 200 Mg Tablet) 100 mg PO BEDTIME NELLI Last Admin: 12/25/23 20:42 Dose: 100 mg Apixaban (Apixaban 5 Mg Tablet) 5 mg PO BID NELLI Last Admin: 12/26/23 08:14 Dose: 5 mg Atorvastatin Calcium (Atorvastatin Calcium 40 Mg Tablet) 40 mg PO BEDTIME NELLI Last Admin: 12/25/23 20:40 Dose: 40 mg Docusate Sodium (Docusate Sodium 100 Mg Capsule) 100 mg PO DAILY PRN PRN Reason: Constipation Last Admin: 12/26/23 13:20 Dose: 100 mg Empagliflozin (Empagliflozin 10 Mg Tablet) 10 mg PO DAILY NELLI Last Admin: 12/26/23 08:14 Dose: 10 mg Furosemide (Furosemide 20 Mg Tablet) 10 mg PO DAILY [facility]; Protocol Last Admin: 12/20/23 08:19 Dose: 10 mg Hydroxyzine HCl (Hydroxyzine Hcl 25 Mg Tablet) 25 mg PO Q6H PRN PRN Reason: Anxiety Last Admin: 12/21/23 21:09 Dose: 25 mg Magnesium Hydroxide (Milk Of Magnesia 30 Ml Oral.Susp) 30 ml PO DAILY PRN PRN Reason: Constipation Last Admin: 12/25/23 05:08 Dose: 30 ml Memantine (Memantine Hcl 10 Mg Tablet) 10 mg PO BID NELLI Last Admin: 12/26/23 08:14 Dose: 10 mg Metoprolol Succinate (Metoprolol Succinate Er 50 Mg Tab.Er.24h) 50 mg PO BEDTIME NELLI; Protocol Last Admin: 12/25/23 20:42 Dose: 50 mg Pantoprazole Sodium (Pantoprazole Sodium 20 Mg Tablet.Dr) 20 mg PO DAILY [facility] Last Admin: 12/26/23 08:14 Dose: 20 mg Risperidone (Risperidone 1 Mg Tablet) 1 mg PO BID [facility] Last Admin: 12/26/23 08:14 Dose: 1 mg Sacubitril/Valsartan (Sacubitril/Valsartan 1 Tab Tablet) 1 tab PO BID [facility]; Protocol Last Admin: 12/20/23 11:23 Dose: Not Given Senna (Sennosides 8.6 Mg Tablet) 17.2 mg PO DAILY PRN PRN Reason: Constipation Last Admin: 12/26/23 13:20 Dose: 17.2 mg Trazodone HCl (Trazodone Hcl 50 Mg Tablet) 50 mg PO BEDTIME MRX1 PRN PRN Reason: Insomnia Last Admin: 12/25/23 20:41 Dose: 50 mg Allergies Allergies Allergy/AdvReac Type Severity Reaction Status Date / Time No Known Allergies Allergy Verified 12/19/23 22:30 Assessment & Plan Assessment & Plan (1) Major neurocognitive disorder due to vascular disease, with behavioral disturbance, moderate: Status: Acute Code(s): F01.B18 - Vascular dementia, moderate, with other behavioral disturbance Plan Mr. Hoskins is a 83 year-old male with hx of vascular dementia who has been presenting with delusions of spouse having an affair since 01/2023. Per , he has been presenting more agitated, also with paranoid delusions of long time friend killing people. He is not oriented to city, nor year. His insight and judgment are impaired. Discussed with invoking HCP. Plan to d/c wellbutrin and start risperidone to target delusions. PLAN 12/20 continue current medications. HOTN. will check ortho. 12/21 continue tx. BP improving, was very low day before, lasix held. 12/22 continue tx 12/23 will increase risperidone 1mg po BID, monitor BP. 12/24 continue tx. 12/25 continue tx. Reason for continued inpatient stay Substantial Risk for: inability to function Time Spent With Patient Time: Total time managing care of this patient today ____ minutes.
[2023-12-27] MEDS: hydrOXYzine HCL 25 MG TABLET PO (00:57)
[2023-12-27] MEDS: traZODone HCL 50 MG TABLET PO (00:57)
[2023-12-27 02:36] VITALS: BP 117/64; PULSE 74; RESP 18; TEMP 36; O2SAT 95
[2023-12-27 07:55] VITALS: BP 112/68; PULSE 70; RESP 18; TEMP 36.8; O2SAT 96
[2023-12-27] MEDS: risperiDONE 1 MG TABLET PO ×2 (08:10→20:31)
[2023-12-27] MEDS: Memantine HCl 10 MG TABLET PO ×2 (08:10→20:31)
[2023-12-27] MEDS: Pantoprazole Sodium 20 MG TABLET.DR PO (08:10)
[2023-12-27] MEDS: Empagliflozin 10 MG TABLET PO (08:10)
[2023-12-27] MEDS: Apixaban 5 MG TABLET PO ×2 (08:10→20:32)
--- NOTE | 2023-12-27 16:24 | HO.PSYCHPN ---
Subjective Subjective Date of Service: 12/27/23 Reason For Visit: Vascular Dementia Subjective Notes: Conditional Voluntary Interim History: Pt sleep most of the night. Pt has been visible on the unit, social with select peers. He had visit with , and was very happy to see her. He does not know how long he has been here. reports pt was much calmer, and tender than he has been in several months. Not accusing others nor overly paranoid. BP continues to be low. Review of Systems Review of Systems No chest pain, no SOB No changes in vision No loose stools or constipation. Constitutional: Denies body ache(s), Denies chills, Denies fatigue, Denies fever(s) and Denies headache(s) Eyes: Denies change in vision Denies headache(s), Denies nasal congestion and Denies nasal discharge Cardiovascular: Denies rapid heart rate, Denies lightheadedness and Denies dyspnea Respiratory: Denies cough and Denies dyspnea Gastrointestinal: Denies constipation, Denies diarrhea, Denies nausea and Denies vomiting Genitourinary: Denies dysuria, Denies urinary frequency, Denies urinary hesitancy and Denies urinary urgency Musculoskeletal: Denies back pain Skin/Breast: Denies rash Denies headache(s) and Reports memory loss Psychiatric: Denies anxiety and Reports memory loss Endocrine: Denies fatigue Mental Status Exam Mental Status Exam Narrative: Appearance: casually groomed, improved hygiene, in NAD Behavior:cooperative, friendly. Psychomotor: no agitation or retardation noted Speech: mostly clear, regular rhythm/volume, spontaneous TP: linear TC: paranoid delusions Mood: good Affect: congruent, bright, non labile. SI: denies HI: none VH/AH: none Delusions: less paranoid ideas. Insight/judgment: impaired x 2. memory/cog: alert, oriented to fact that this is a hospital, but does not know the city, knows month, not year. Not oriented to situation. Diagnostics Vital Signs (24Hr): Vital Signs - 24 hr 12/26/23 20:00 12/27/23 02:36 12/27/23 07:55 Temperature 96.8 F 96.8 F 98.2 F Pulse Rate 73 74 70 Respiratory Rate 18 18 18 Blood Pressure 112/59 L 117/64 112/68 Pulse Oximetry 96 95 96 Oxygen Delivery Method Room Air Room Air Room Air BMI result Body Mass Index 26.3 Medications Medications Current Medications Acetaminophen (Acetaminophen 325 Mg Tablet) 650 mg PO Q6H PRN PRN Reason: Headache/Pain Mild Scale (1-3) Al Hydroxide/Mg Hydroxide (Magnesium Hydrox/Alum Hydrox 30 Ml Oral.Susp) 30 ml PO Q6H PRN PRN Reason: Heartburn/Nausea Amiodarone HCl (Amiodarone Hcl 200 Mg Tablet) 100 mg PO BEDTIME NELLI Last Admin: 12/26/23 20:21 Dose: 100 mg Apixaban (Apixaban 5 Mg Tablet) 5 mg PO BID NELLI Last Admin: 12/27/23 08:10 Dose: 5 mg Atorvastatin Calcium (Atorvastatin Calcium 40 Mg Tablet) 40 mg PO BEDTIME NELLI Last Admin: 12/26/23 20:21 Dose: 40 mg Docusate Sodium (Docusate Sodium 100 Mg Capsule) 100 mg PO DAILY PRN PRN Reason: Constipation Last Admin: 12/26/23 13:20 Dose: 100 mg Empagliflozin (Empagliflozin 10 Mg Tablet) 10 mg PO DAILY NELLI Last Admin: 12/27/23 08:10 Dose: 10 mg Furosemide (Furosemide 20 Mg Tablet) 10 mg PO DAILY [facility]; Protocol Last Admin: 12/20/23 08:19 Dose: 10 mg Hydroxyzine HCl (Hydroxyzine Hcl 25 Mg Tablet) 25 mg PO Q6H PRN PRN Reason: Anxiety Last Admin: 12/27/23 00:57 Dose: 25 mg Magnesium Hydroxide (Milk Of Magnesia 30 Ml Oral.Susp) 30 ml PO DAILY PRN PRN Reason: Constipation Last Admin: 12/25/23 05:08 Dose: 30 ml Memantine (Memantine Hcl 10 Mg Tablet) 10 mg PO BID NELLI Last Admin: 12/27/23 08:10 Dose: 10 mg Metoprolol Succinate (Metoprolol Succinate Er 50 Mg Tab.Er.24h) 50 mg PO BEDTIME NELLI; Protocol Last Admin: 12/26/23 20:21 Dose: 50 mg Pantoprazole Sodium (Pantoprazole Sodium 20 Mg Tablet.Dr) 20 mg PO DAILY NELLI Last Admin: 12/27/23 08:10 Dose: 20 mg Risperidone (Risperidone 1 Mg Tablet) 1 mg PO BID NELLI Last Admin: 12/27/23 08:10 Dose: 1 mg Sacubitril/Valsartan (Sacubitril/Valsartan 1 Tab Tablet) 1 tab PO BID [facility]; Protocol Last Admin: 12/20/23 11:23 Dose: Not Given Senna (Sennosides 8.6 Mg Tablet) 17.2 mg PO DAILY PRN PRN Reason: Constipation Last Admin: 12/26/23 13:20 Dose: 17.2 mg Trazodone HCl (Trazodone Hcl 50 Mg Tablet) 50 mg PO BEDTIME MRX1 PRN PRN Reason: Insomnia Last Admin: 12/27/23 00:57 Dose: 50 mg Allergies Allergies Allergy/AdvReac Type Severity Reaction Status Date / Time No Known Allergies Allergy Verified 12/19/23 22:30 Assessment & Plan Assessment & Plan (1) Major neurocognitive disorder due to vascular disease, with behavioral disturbance, moderate: Status: Acute Code(s): F01.B18 - Vascular dementia, moderate, with other behavioral disturbance Plan Mr. Hoskins is a 83 year-old male with hx of vascular dementia who has been presenting with delusions of spouse having an affair since 01/2023. Per , he has been presenting more agitated, also with paranoid delusions of long time friend killing people. He is not oriented to city, nor year. His insight and judgment are impaired. Discussed with invoking HCP. Plan to d/c wellbutrin and start risperidone to target delusions. PLAN 12/20 continue current medications. HOTN. will check ortho. 12/21 continue tx. BP improving, was very low day before, lasix held. 12/22 continue tx 12/23 will increase risperidone 1mg po BID, monitor BP. 12/24 continue tx. 12/25 continue tx. 12/26 continue tx. dc tomorrow. Reason for continued inpatient stay Substantial Risk for: inability to function Time Spent With Patient Time: Total time managing care of this patient today ____ minutes.
[2023-12-27 20:00] VITALS: BP 141/73; PULSE 76; RESP 16; TEMP 36.6; O2SAT 97
[2023-12-27] MEDS: Atorvastatin Calcium 40 MG TABLET PO (20:31)
[2023-12-27 20:32] VITALS: BP 141/73; PULSE 76
[2023-12-27] MEDS: Amiodarone HCL 200 MG TABLET 100 MG PO (20:32)
[2023-12-27] MEDS: Metoprolol Succinate ER 50 MG TAB.ER.24H PO (20:32)
[2023-12-28 08:00] VITALS: BP 126/76; PULSE 73; RESP 18; TEMP 36.4; O2SAT 97
[2023-12-28] MEDS: Empagliflozin 10 MG TABLET PO (08:26)
[2023-12-28] MEDS: Pantoprazole Sodium 20 MG TABLET.DR PO (08:26)
[2023-12-28] MEDS: risperiDONE 1 MG TABLET PO (08:26)
[2023-12-28] MEDS: Memantine HCl 10 MG TABLET PO (08:26)
[2023-12-28] MEDS: Apixaban 5 MG TABLET PO (08:26)
--- NOTE | 2023-12-28 10:22 | P.DS_ITS ---
DS: Providers Provider Date of Service: 12/28/23 Date of admission: 12/19/23 22:15 Date of discharge: 12/28/23 Primary care physician: Nonstaff Physician Consults: 12/19/23 23:25 Consult to Hospitalist Routine Comment: Consulting Provider: Hospitalist Reason For Exam: OSH admission Discharging clinician: Stefanie Aviles DS: Diagnosis Discharge Diagnosis (1) Major neurocognitive disorder due to vascular disease, with behavioral disturbance, moderate: Status: Acute DS: Medications Discharge Medications Home Medications: Previous Rx's ?Medication ?Instructions ?Recorded amiodarone 200 mg tablet 100 mg (1/2 x 200 mg) PO BEDTIME 12/28/23 #0 tabs apixaban 5 mg tablet (Eliquis) 5 mg PO BID #0 tabs 12/28/23 atorvastatin 40 mg tablet 40 mg PO BEDTIME #0 tabs 12/28/23 docusate sodium 100 mg capsule 100 mg PO DAILY Constipation #0 12/28/23 caps empagliflozin 10 mg tablet 10 mg PO DAILY #0 tabs 12/28/23 (Jardiance) memantine 10 mg tablet 10 mg PO BID #0 tabs 12/28/23 metoprolol succinate 50 mg 50 mg PO BEDTIME #0 tabs 12/28/23 tablet,extended release 24 hr pantoprazole 20 mg tablet,delayed 20 mg PO DAILY #0 tabs 12/28/23 release risperidone 1 mg tablet 1 mg PO BID #0 tabs 12/28/23 sennosides 8.6 mg tablet (Senna 17.2 mg (2 x 8.6 mg) PO DAILY PRN 12/28/23 Lax) Constipation #0 tabs trazodone 50 mg tablet 50 mg PO BEDTIME Insomnia #0 tabs 12/28/23 Mental Status Exam Mental Status Exam Narrative: Appearance: casually groomed, improved hygiene, in NAD Behavior:cooperative, friendly. Psychomotor: no agitation or retardation noted Speech: mostly clear, regular rhythm/volume, spontaneous TP: linear TC: paranoid delusions Mood: good Affect: congruent, bright, non labile. SI: denies HI: none VH/AH: none Delusions: less paranoid ideas. Insight/judgment: impaired x 2. memory/cog: alert, oriented to fact that this is a hospital, but does not know the city, knows month, not year. Not oriented to situation. MOCA ACL 3.4. MOCA 12/27 with most impairments in visuospatial,executive function, naming, abstraction and recall. severe cognitive impairment. Data Data Completed and Pending Completed studies during hospitalization [Text1]: 12/21/23 15:00 Urine Color Yellow Urine Appearance Clear Urine pH 5.5 Ur Specific [place] 1.015 Urine Protein Negative Urine Glucose (UA) >=1000 H Urine Ketones Negative Urine Blood Trace H Urine Nitrite Negative Ur Leukocyte Esterase Negative Urine RBC 0-2 Urine WBC 0-5 Ur Squamous Epith Cells 0-2 Urine Bacteria None Seen Hyaline Casts 0-2 DS: Summary Hospital Course Hospital Course: Subjective Notes: [place] Warning and Section 12B Narrative: Mr. Hoskins is a 83 year-old male with hx of vascular dementia who was initially brought via EMS to [facility] ED on 12/10/2023 due to increase combative behaviors towards (per ED documentation threw glass with ice and broke other) due to beliefs that is having an affair with cosmetics demonstrator. Per , pt burks d made threats that he wanted to kill her. In the ED, pt presented as calmer but continued to present with ideas of his having an affair. He was not oriented to year. Labs in the ED included CBC which showed mild leukocytosis (WBC 11.3), CMP without electrolyte abnormalities, BUN elevated 26, Cr 1.14, ASL 21, ALT 15. UA showed urine protein, glucose, trace of ketones, yeast. He was started on cephalexin for uti. He was also found to be covid positive but described as asymptomatic, therefore not started on paxlovid. His chest XR did show mild patchy perihilar infiltrates bilat. Utox was negative. On the unit, pt presents as guarded. He continues to report that the only reason he was sent to this hospital is because the cosmetics demonstrator old the doctor at the other hospital to keep him away from his . He also reports that he suspect long time friend, Franc, has been murdering people and he learned through a secrete source that he is planning to kill his tonkary. Pt presents some what restless and agitated about idea that he has to warn his friend who he suspect will be killed tonight. When asked if hearing things that others can't hear, he denies it. He denies any physical pain. Past Psychiatric History: Inpt: none in the past OP: Dr. Clovis Blood [phone], ext [phone]. Past trials: wellbutrin Medical Evaluation Reviewed: Yes HOSPITAL COURSE On the unit, pt was admitted on CV signed by HCP. Pt presented with paranoid ideas f having an affair along with other paranoid ideas f fpc friend killing people. After discussing risks, benefits and alternative treatment options with as HCP, pt was started on risperidone, which was increased to 1mg po BID. Wellbutrin was stopped as it worsens psychosis. His affect gradually presented as much less paranoid and calmer. He denies SI/HI. He was sleeping through the night. He was visible on the unit and social with select peers. agreed to take him home. His BP was noted to be low. Lasix and Entresto were held- advised to discuss with pt's PCP further adjustment to HTN meds. MOCA was completed while on the unit and pt scored 10/30 with ACL 3.6 showing severe cognitive impairment. Status at Discharge Cognitive/behavioral status at discharge: pt with brighter, non labile affect. No SI/HI. No aggression towards self or others. Sleeping and eating well. Functional status at discharge: uses cane/walker Overall status at discharge: patient is back to baseline Time Spent with Patient Time attestation: Total time managing care of this patient today ___35_ minutes. Time spent: Greater than 30 minutes Discharge Plan Discharge Anticipated Discharge Date/Time: 12/28/23 10:18 Patient Disposition: Home, Self-Care Discharge Diagnosis: Major Neurocognitive Disorder vascular type Referrals: 's Adminstration: Dr Blood Psychiat[facility] [Other] - 1 Week (Request for hospital discharge appointments was made with the [facility]. They will follow up with appointment date and time. ) 's Administration: Dr Fonseca [Other] - 01/05/24 8:00 am ([facility] 8AM. ) Discharge Medications: New atorvastatin 40 mg Tablet 40 mg PO BEDTIME Qty: 0 0RF sennosides [Senna Lax] 8.6 mg Tablet 17.2 mg PO DAILY PRN (Reason: Constipation) Qty: 0 0RF trazodone 50 mg Tablet 50 mg PO BEDTIME Qty: 0 0RF amiodarone 200 mg Tablet 100 mg PO BEDTIME Qty: 0 0RF metoprolol succinate 50 mg Tablet Extended Release 24 Hr 50 mg PO BEDTIME Qty: 0 0RF Protocol: Hold for SBP/HR < HOLD for SBP < : 90 HOLD for HR < : 60 pantoprazole 20 mg Tablet,Delayed Release (Dr/Ec) 20 mg PO DAILY Qty: 0 0RF docusate sodium 100 mg Capsule 100 mg PO DAILY Qty: 0 0RF risperidone 1 mg Tablet 1 mg PO BID Qty: 0 0RF memantine 10 mg Tablet 10 mg PO BID Qty: 0 0RF Eliquis 5 mg Tablet 5 mg PO BID Qty: 0 0RF Jardiance 10 mg Tablet 10 mg PO DAILY Qty: 0 0RF Discontinued bupropion HCl 300 mg Tablet Extended Release 24 Hr 300 mg PO QAM metoprolol succinate 25 mg Tablet Extended Release 24 Hr 50 mg PO BEDTIME amiodarone 100 mg Tablet 100 mg PO BEDTIME apixaban 5 mg Tablet 5 mg PO BID atorvastatin 40 mg Tablet 40 mg PO BEDTIME trazodone 50 mg Tablet 50 mg PO BEDTIME PRN (Reason: Insomnia) memantine 10 mg Tablet 10 mg PO BID docusate sodium 100 mg Capsule 100 mg PO DAILY PRN (Reason: Constipation) Jardiance 10 mg Tablet 10 mg PO QAM oxycodone 5 mg Tablet 5 mg PO Q4H PRN (Reason: Pain (Scale Score 4-6)) furosemide 20 mg Tablet 10 mg PO DAILY pantoprazole 20 mg Tablet,Delayed Release (Dr/Ec) 20 mg PO DAILY sacubitril-valsartan 24-26 mg Tablet 1 tab PO BID sennosides [senna] 8.6 mg Tablet 17.2 mg PO DAILY PRN (Reason: Constipation) Discharge Orders: Discharge Order (Routine); Ordered 12/28/23 Ordered By: Stefanie Aviles Diet: Low fat, low cholesterol Activity on Discharge: As tolerated Stand Alone Forms: Patient Portal Discharge page, Community Support Print Language: Tajik Care Plan Goals: maintain mood no si/hi no aggression towards self or others Health Concerns: follow up with PCP- BP low- furosemide, entresto held. Plan of Treatment: 1. Take medications as prescribed. 2. Go to nearest ED or call 911 in event of emergency Assessment: Pt with brighter, non labile affect. No SI/HI. Sleeping well. less paranoid ideas. No aggression towards self or others. Discharge Date/Time: 12/28/23 13:22
== END 2023-12-28 13:22 | disposition home or self-care (01) | DRG 884 ==
PROVIDERS: Physician Assistant; Admitting Provider Psychiatry & Neurology Psychiatry; Visit Provider Psychiatry & Neurology Psychiatry
DX: F01.B18 Vascular dementia, moderate, with other behavioral disturbance (principal); I25.10 Atherosclerotic heart disease of native coronary artery without angina pectoris; G47.33 Obstructive sleep apnea (adult) (pediatric); E78.5 Hyperlipidemia, unspecified; Z95.810 Presence of automatic (implantable) cardiac defibrillator; Z87.440 Personal history of urinary (tract) infections; Z87.891 Personal history of nicotine dependence; Z79.01 Long term (current) use of anticoagulants; Z79.899 Other long term (current) drug therapy
CPT/HCPCS: 81001; 82947

== ENCOUNTER → 2023-12-19 22:15 | Outpatient (BNV) | payer OTHER, SELFPAY | PROVIDERS: Admitting Provider Psychiatry & Neurology Psychiatry; Visit Provider Social Worker | DX: F01.B18 Vascular dementia, moderate, with other behavioral disturbance (principal) | CPT/HCPCS: 90792; 99231; 99232; 99239 ==

== ENCOUNTER → 2023-12-19 22:15 | Outpatient (BNV) | payer OTHER, SELFPAY | PROVIDERS: Admitting Provider Psychiatry & Neurology Psychiatry; Visit Provider Physician Assistant | DX: Z00.8 Encounter for other general examination (principal) | CPT/HCPCS: 99429 ==